=== PATIENT | female | born 2000 | race Caucasian/White ===

== ENCOUNTER 2023-02-12 12:44 | Emergency (ER) | payer OTHER ==
[2023-02-12 13:00] VITALS: BP 139/74; PULSE 98; RESP 16; TEMP 98.3
[2023-02-12] MEDS ORDERED: IBUPROFEN 600 MG TABLET (FP) PO ONE ×2 (14:16→14:25)
[2023-02-12] MEDS ORDERED: CYCLOBENZAPRINE HCL 10 MG TABLET (FP) PO ONE (14:16)
[2023-02-12] MEDS ORDERED: CYCLOBENZAPRINE HCL 10 MG TABLET (FP) ONE (14:25)
== END 2023-02-12 15:11 | disposition home or self-care (01) ==
LOC: JERFT 12:44
DX: R07.9 Chest pain, unspecified (principal)
CPT/HCPCS: 71046-TC-FY; 93005; 93010; 99284-25